=== PATIENT | male | born 1995 | race African-American/Black ===

== ENCOUNTER 2018-01-13 21:08 | Emergency (ER) | payer MEDICAID ==
[2018-01-13 21:16] VITALS: Ht 188 cm
[2018-01-13 21:48] LABS: BASOPHIL % 0.2 % (0-2); PLATELET COUNT 273 x10^3mcL (130-400); RED CELL DISTRIBUTION WIDTH 12.4 % (11.5-14.5)
[2018-01-13 22:03] LABS: CALCIUM 9.6 mg/dL (8.5-10.1); CARBON DIOXIDE 28.5 mmol/L (21-32); CHLORIDE SERUM 104 mmol/L (98-107); CREATININE SERUM 1.1 mg/dL (0.7-1.3); GFR1 > 60 mL/min; GLUCOSE SERUM 85 mg/dL (74-106); POTASSIUM SERUM 3.9 mmol/L (3.5-5.1); SODIUM SERUM 140 mmol/L (136-145)
[2018-01-13 22:08] LABS: ALBUMIN 4.2 g/dL (3.4-5.0); ALKALINE PHOSPHATASE 85 U/L (46-116); ALT/SGPT 23 U/L (16-63); AST/SGOT 15 U/L (15-37); BILIRUBIN TOTAL 0.4 mg/dL (0.20-1.00); TOTAL PROTEIN, SERUM 7.9 g/dL (6.4-8.2)
[2018-01-13 23:16] VITALS: BP 133/78
== END 2018-01-13 23:16 | disposition home or self-care (01) ==
LOC: ED 21:08
PROVIDERS: Emergency Medicine
DX: F43.10 Post-traumatic stress disorder, unspecified (principal); K21.9 Gastro-esophageal reflux disease without esophagitis; Z88.0 Allergy status to penicillin; Z88.2 Allergy status to sulfonamides; X58.XXXA Exposure to other specified factors, initial encounter; Y93.89 Activity, other specified; Y92.89 Other specified places as the place of occurrence of the external cause; Y99.8 Other external cause status
CPT/HCPCS: 36415

== ENCOUNTER 2018-06-13 22:56 | Emergency (ER) | payer MEDICAID ==
[~2018-06-13] VITALS: Ht 185.4 cm; Wt 120.2 kg
[2018-06-13 23:22] VITALS: Ht 185.4 cm; Wt 120.2 kg
[2018-06-14 00:31] VITALS: BP 132/82
== END 2018-06-14 00:31 | disposition home or self-care (01) ==
LOC: ED 22:56
DX: S93.401A Sprain of unspecified ligament of right ankle, initial encounter (principal); R03.0 Elevated blood-pressure reading, without diagnosis of hypertension; Z88.0 Allergy status to penicillin; Z88.2 Allergy status to sulfonamides; V00.131A Fall from skateboard, initial encounter; Y93.51 Activity, roller skating (inline) and skateboarding; Y92.331 Roller skating rink as the place of occurrence of the external cause; Y99.8 Other external cause status